=== PATIENT | male | born 1970 | race Hispanic/Latino ===

== ENCOUNTER 2023-03-27 17:25 | Inpatient (IN) | payer OTHER ==
[~2023-03-27] VITALS: Ht 172.7 cm; Wt 68.0 kg
[2023-03-27 17:57] LABS: BASOPHILS # (AUTO) 0.05 K/uL (0.00-0.20); BASOPHILS % (AUTO) 0.3 % (0.0-5.0); HEMATOCRIT 41.1 % (42-54); IMMATURE GRANULOCYTE ABSOLUTE 0.19 K/uL (0-1); LYMPHOCYTES # (AUTO) 0.4 K/uL (1.0-4.8); LYMPHOCYTES % (AUTO) 2.1 % (21.0-51.0); MEAN CORPUSCULAR HEMOGLOBIN 32.4 pg (27.0-33.0); MEAN CORPUSCULAR HGB CONC 34.8 g/dL (32.0-36.0); MEAN CORPUSCULAR VOLUME 93.2 fL (79-99); MONOCYTES # (AUTO) 0.6 K/uL (0.1-1.0); MONOCYTES % (AUTO) 3.1 % (3.0-13.0); NEUTROPHILS % (AUTO) 93.5 % (40.0-77.0); PLATELET COUNT (AUTO) 142 K/uL (130-400); RED BLOOD CELL COUNT(AUTO) 4.41 MIL/uL (4.50-6.20); RED CELL DISTRIBUTION WIDTH 11.8 % (11.0-15.5); WHITE BLOOD COUNT (AUTO) 18.2 K/uL (4.8-10.8)
[2023-03-27 18:00] LABS: SARS-CoV-2, RNA, NAAT NEGATIVE SARS CoV-2 (NEGATIVE)
[2023-03-27 18:01] LABS: RAPID GROUP A STREP negative (NEGATIVE)
[2023-03-27 18:07] LABS: CREATININE 1.2 mg/dL (0.5-1.5); POTASSIUM 3.6 mmol/L (3.5-5.1)
[2023-03-27 18:08] LABS: INFLUENZA TYPE A Negative For Type A (NEGATIVE); INFLUENZA TYPE B Negative For Type B (NEGATIVE)
[2023-03-27 18:17] LABS: ALBUMIN 3.4 g/dL (3.5-5.0); BILIRUBIN,TOTAL 1.5 mg/dL (0.2-1.0); TOTAL PROTEIN, SERUM 7.4 g/dL (6.0-8.3)
[2023-03-27 20:30] LABS: APPEARANCE,URINE CLOUDY (CLEAR); BILIRUBIN,URINE NEGATIVE (NEGATIVE); COLOR,URINE YELLOW (YELLOW); GLUCOSE, URINE (UA) NEGATIVE (NEGATIVE); KETONES,URINE NEGATIVE (NEGATIVE); LEUKOCYTE ESTERASE ,URINE 500 Leu/uL (NEGATIVE); NITRATE,URINE NEGATIVE (NEGATIVE); OCCULT BLOOD,URINE SMALL (NEGATIVE); PROTEIN,URINE 100 mg/dL (NEGATIVE); UROBILINOGEN,URINE 0.2 mg/dL (0.2-1.0)
[2023-03-27] MEDS ORDERED: ZOSYN 3.375GM +NS 50ML IVPB ONE (20:30)
[2023-03-27] MEDS ORDERED: 0.9%NACL 1000ML 1,000 ML IV ONE (20:30)
[2023-03-27 20:36] LABS: ADD UA MICROSCOPIC YES
[2023-03-27 20:42] LABS: BACTERIA,URINE FEW /HPF (None Seen); MUCUS,URINE RARE LPF (None Seen); NON-SQUAMOUS EPITHELIAL CELL 1 /HPF (0-2); SQUAMOUS EPITHELIAL CELL,UR RARE /HPF (0-2); WBC,URINE 51-100 /HPF (0-1)
[2023-03-27] MEDS ORDERED: ACETAMINOPHEN 325 MG TAB PO PRN (22:30)
[2023-03-27] MEDS ORDERED: KETOROLAC 60 MG VIAL (30MG/ML) IM ONE (22:30)
[2023-03-27] MEDS ORDERED: ONDANSETRON 4MG INJ IV PRN (22:30)
[2023-03-27] MEDS ORDERED: MORPHINE 4 MG SYG IV PRN (22:30)
[2023-03-27] MEDS ORDERED: MORPHINE 2 MG SYG IV PRN (22:30)
[2023-03-27] MEDS ORDERED: LACTATED RINGERS 1000ML 1,845 ML IV ONE (22:30)
[2023-03-27] MEDS ORDERED: MAGNESIUM 2GM PREMIX 50ML 50 ML IV PRN (23:30)
[2023-03-27] MEDS ORDERED: POTASSIUM CHLORIDE 10% ELIXIR 20 MEQ/15 ML UDCUP PO PRN (23:30)
[2023-03-27] MEDS ORDERED: KCL 20 MEQ ERTAB PO PRN (23:30)
[2023-03-27] MEDS ORDERED: PHARMACY COMMUNICATION MISC PRN (23:30)
[2023-03-27] MEDS ORDERED: POTASSIUM CHLORIDE 20MEQ/100ML 100 ML IV PRN (23:30)
[2023-03-27] MEDS ORDERED: LORAZEPAM 2 MG/ML 1 ML VIAL IVP PRN (23:30)
[2023-03-27] MEDS: CHLORDIAZEPOXIDE HCL 25 MG CAP PO SCH (23:37)
[2023-03-28] MEDS: ZOSYN 3.375GM+NS 50ML 50 ML IVPB SCH ×3 (04:57→20:53)
[2023-03-28 07:11] LABS: HEMOGLOBIN A1C 5.8 % (4.0-6.0)
[2023-03-28 07:19] LABS: CREATININE 1.1 mg/dL (0.5-1.5); MAGNESIUM 1.9 mg/dL (1.80-2.40)
[2023-03-28] MEDS: INSULIN HUMULIN R 100 UNIT/ML 3ML SQ SCH ×2 (07:30→11:30)
[2023-03-28] MEDS: CHLORDIAZEPOXIDE HCL 25 MG CAP PO SCH ×3 (07:30→23:46)
[2023-03-28 07:34] LABS: BASOPHILS # (AUTO) 0.05 K/uL (0.00-0.20); BASOPHILS % (AUTO) 0.3 % (0.0-5.0); EOSINOPHILS # (AUTO) 0.03 K/uL (0.00-0.70); EOSINOPHILS % (AUTO) 0.2 % (0.0-8.0); HEMATOCRIT 37.9 % (42-54); IMMATURE GRANULOCYTE ABSOLUTE 0.22 K/uL (0-1); LYMPHOCYTES % (AUTO) 5.1 % (21.0-51.0); MEAN CORPUSCULAR HEMOGLOBIN 32.8 pg (27.0-33.0); MEAN CORPUSCULAR HGB CONC 35.9 g/dL (32.0-36.0); MEAN CORPUSCULAR VOLUME 91.3 fL (79-99); MONOCYTES # (AUTO) 1.3 K/uL (0.1-1.0); MONOCYTES % (AUTO) 6.6 % (3.0-13.0); NEUTROPHILS # (AUTO) 17.2 K/uL (1.8-7.7); NEUTROPHILS % (AUTO) 86.7 % (40.0-77.0); PLATELET COUNT (AUTO) 139 K/uL (130-400); RED BLOOD CELL COUNT(AUTO) 4.15 MIL/uL (4.50-6.20); RED CELL DISTRIBUTION WIDTH 12.1 % (11.0-15.5); WHITE BLOOD COUNT (AUTO) 19.8 K/uL (4.8-10.8)
[2023-03-28] MEDS: FAMOTIDINE 20MG TAB PO SCH ×2 (09:50→20:54)
[2023-03-28] MEDS: ENOXAPARIN SODIUM 40 MG/0.4 ML SYRINGE SQ SCH (09:50)
[2023-03-28] MEDS ORDERED: SERT-440 PO (11:46)
[2023-03-28] MEDS ORDERED: DULO60CA64 PO (11:46)
[2023-03-28] MEDS ORDERED: LISI1TAB51 PO (11:46)
[2023-03-28 12:00] VITALS: BP 124/77; PULSE 84; RESP 16
[2023-03-28] MEDS ORDERED: PHENAZOPYRIDINE HCL 200 MG TABLET PO PRN (12:00)
[2023-03-28] MEDS ORDERED: HYDRALAZINE 20MG/ML VIAL IV PRN (12:30)
[2023-03-28] MEDS: LACTATED RINGERS 1000ML 1,000 ML IV SCH (13:31)
[2023-03-28] MEDS: ACETAMINOPHEN 325 MG TAB PO PRN ×2 (15:20→20:59)
[2023-03-28 16:00] VITALS: BP 124/83; PULSE 83; RESP 16
[2023-03-28 20:00] VITALS: O2SAT 96
[2023-03-28 20:21] VITALS: BP 121/73; PULSE 80; RESP 20
[2023-03-28 23:41] VITALS: BP 107/65; PULSE 70; RESP 18
[2023-03-29] MEDS: LACTATED RINGERS 1000ML 1,000 ML IV SCH (03:10)
[2023-03-29 03:44] VITALS: BP 130/90; PULSE 63; RESP 18
[2023-03-29] MEDS: ZOSYN 3.375GM+NS 50ML 50 ML IVPB SCH (04:46)
[2023-03-29] MEDS: ACETAMINOPHEN 325 MG TAB PO PRN (04:56)
[2023-03-29 05:24] LABS: MEAN CORPUSCULAR HEMOGLOBIN 32.3 pg (27.0-33.0); MEAN CORPUSCULAR HGB CONC 33.8 g/dL (32.0-36.0); MEAN CORPUSCULAR VOLUME 95.6 fL (79-99); RED BLOOD CELL COUNT(AUTO) 3.87 MIL/uL (4.50-6.20); RED CELL DISTRIBUTION WIDTH 12.1 % (11.0-15.5); WHITE BLOOD COUNT (AUTO) 14.1 K/uL (4.8-10.8)
[2023-03-29 06:05] LABS: ALBUMIN 2.5 g/dL (3.5-5.0); BILIRUBIN,TOTAL 0.5 mg/dL (0.2-1.0); POTASSIUM 3.5 mmol/L (3.5-5.1); TOTAL PROTEIN, SERUM 6.5 g/dL (6.0-8.3)
[2023-03-29] MEDS: CHLORDIAZEPOXIDE HCL 25 MG CAP PO SCH (06:15)
[2023-03-29 07:59] VITALS: BP 121/77; PULSE 89; RESP 16
[2023-03-29 08:00] VITALS: O2SAT 94
[2023-03-29] MEDS: FAMOTIDINE 20MG TAB PO SCH (08:59)
[2023-03-29] MEDS: ENOXAPARIN SODIUM 40 MG/0.4 ML SYRINGE SQ SCH (09:00)
[2023-03-29] MEDS ORDERED: THIAMINE HCL 100 MG, FOLIC ACID 1 MG, M.V.I. IV [ADULT] 10 ML in 0.9%NACL 1000ML 1,000 ML IV SCH (09:30)
[2023-03-29] MEDS ORDERED: PHARMACY COMMUNICATION MISC PRN (09:30)
[2023-03-29] MEDS ORDERED: COMPOUND IV REFRIGERATED 1 EACH IVSOLN MISC PRN (10:00)
[2023-03-29] MEDS ORDERED: AMOX1TAB16 PO (11:43)
[2023-03-29 11:55] VITALS: BP 120/75; PULSE 75; RESP 16
== END 2023-03-29 14:30 | disposition home or self-care (01) | DRG 872 ==
LOC: EDH 17:25 → EDHIP 17:26 → 4AH 03-28 10:22
PROVIDERS: ADMIT Internal Medicine; ATTEND Internal Medicine
DX: A41.9 Sepsis, unspecified organism (principal); N39.0 Urinary tract infection, site not specified; Z20.822 Contact with and (suspected) exposure to COVID-19; R73.9 Hyperglycemia, unspecified; F10.20 Alcohol dependence, uncomplicated; I10 Essential (primary) hypertension; F41.9 Anxiety disorder, unspecified
CPT/HCPCS: 36415; 71045; 74176; 80048; 80053; 81001; 82948; 83036; 83605; 83690; 83735; 84100; 84145; 84484; 85025; 85027; 85651; 86140; 87040; 87077; 87088; 87186; 87635; 87804; 87880; 93005; C9803; G0378; J1650; J1885; J2270; J2405; J2543; J3411; J3490; J7030; J7120